=== PATIENT | male | born 1995 | race Caucasian/White ===

== ENCOUNTER 2023-05-07 20:00 | Emergency (ER) | payer SELFPAY ==
[~2023-05-07] VITALS: Ht 182.9 cm; Wt 70.5 kg
[2023-05-07 20:01] VITALS: TEMP 98.7
[2023-05-07] MEDS ORDERED: NS 1,000 ML IV ONE (20:15)
[2023-05-07] MEDS ORDERED: fentaNYL 50 MCG/ML 2 ML VIAL IV ONE ×2 (20:30→21:45)
[2023-05-07 20:35] LABS: HEMOGLOBIN 15.5 g/dl (13.5-18.0); MEAN CELL VOLUME 100 fl (80.0-100.0); MEAN CORPUSCULAR HEMOGLOBIN 34 pg (27-31); MEAN CORPUSCULAR HGB CONC 34 g/dl (33.0-37.0); MEAN PLATELET VOLUME 10.3 fl (7.4-10.4); PLATELET COUNT 318 K/mm3 (130-400); RED BLOOD COUNT 4.58 M/mm3 (4.20-5.60); REDCELL DISTRIBUTION WIDTH-CV 12.2 % (11.5-14.5)
[2023-05-07 21:06] LABS: ANISOCYTOSIS 1+; BAND 18 % (0-10); LYMPHOCYTE 9 % (20.0-51.0); METAMYELOCYTE 2 % (0-0); NEUTROPHILS 67 % (42.0-75.2); PLATELET ESTIMATE NORMAL (NORMAL)
[2023-05-07] MEDS ORDERED: levETIRAcetam 100 ML IV ONE (21:15)
[2023-05-07] MEDS ORDERED: Iohexol 300 - 100 ML VIAL IV ONE (21:59)
[2023-05-07] MEDS ORDERED: NS 60 ML IV ONE (22:00)
[2023-05-07] MEDS ORDERED: Ondansetron 4 MG/2 ML VIAL IV ONE (22:15)
[2023-05-08 00:39] VITALS: BP 129/73; PULSE 109
[2023-05-14] MEDS ORDERED: FIORICET 325 MG1 TA1 PO ×2 (17:55→18:01)
== END 2023-05-07 22:10 | disposition short-term general hospital (02) ==
LOC: COL.ER 20:00
PROVIDERS: Family Medicine
DX: S06.4X0A Epidural hemorrhage without loss of consciousness, initial encounter (principal); R00.0 Tachycardia, unspecified; R56.9 Unspecified convulsions; W17.89XA Other fall from one level to another, initial encounter; W22.09XA Striking against other stationary object, initial encounter; Y93.89 Activity, other specified
CPT/HCPCS: J1953; J2405; J3010; J7030; Q9967

== ENCOUNTER 2023-09-25 10:56 | Inpatient (IN) | payer OTHER ==
[2023-09-25] VITALS (8 sets, daily range): BP systolic 134–156; BP diastolic 78–98; PULSE 63–88; TEMP 98.2–99.1
[~2023-09-25] VITALS: Ht 182.9 cm; Wt 70.4 kg
[~2023-09-25 10:56] MED LIST: FIORICET 325 MG1 TA1 PO
[2023-09-25] MEDS ORDERED: NS 1,000 ML IV ONE (11:15)
[2023-09-25 11:21] LABS: HEMATOCRIT 38.9 % (42.0-52.0); HEMOGLOBIN 13.7 g/dl (13.5-18.0); MEAN CELL VOLUME 97 fl (80.0-100.0); MEAN CORPUSCULAR HEMOGLOBIN 34 pg (27-31); MEAN CORPUSCULAR HGB CONC 35 g/dl (33.0-37.0); MEAN PLATELET VOLUME 9.2 fl (7.4-10.4); PLATELET COUNT 297 K/mm3 (130-400); RED BLOOD COUNT 4.03 M/mm3 (4.20-5.60); REDCELL DISTRIBUTION WIDTH-CV 12.7 % (11.5-14.5)
[2023-09-25 11:38] LABS: ALBUMIN 4.3 g/dL (3.5-5.0); BILIRUBIN,TOTAL 0.9 mg/dL (0.2-1.2); CALCIUM 9.9 mg/dL (8.4-10.2); CREATININE, serum 0.8 mg/dL (0.72-1.25); POTASSIUM 4.2 mEq/L (3.5-4.5); TOTAL PROTEIN 7.6 g/dl (6.2-8.1)
[2023-09-25 11:57] LABS: BAND 6 % (0-10); LYMPHOCYTE 28 % (20.0-51.0); NEUTROPHILS 60 % (42.0-75.2); PLATELET ESTIMATE NORMAL (NORMAL); PROLACTIN 57.3 ng/mL (3.46-19.40)
[2023-09-25 13:04] LABS: URINE APPEARANCE CLEAR (CLEAR/HAZY); URINE BLOOD NEGATIVE (NEGATIVE); URINE COLOR YELLOW (YELLOW); URINE GLUCOSE NEGATIVE (NEGATIVE); URINE KETONE 2+ (NEGATIVE); URINE NITRATE NEGATIVE (NEGATIVE); URINE PROTEIN(semi-quant) 3+ (NEGATIVE)
[2023-09-25 13:52] LABS: COLLECTION METHOD CLEAN CATCH; URINE RBC 0-2 /hpf (0-2)
[2023-09-25 13:53] LABS: URINE BACTERIA NONE SEEN /hpf (NONE SEEN)
[2023-09-25] MEDS ORDERED: Ketorolac 15 MG/ML VIAL IV ONE (14:00)
[2023-09-25] MEDS ORDERED: Folic Acid 1 MG TAB PO SCH (15:26)
[2023-09-25] MEDS ORDERED: LORazepam 2 MG/ML 1 ML VIAL IV PRN (15:30)
[2023-09-25] MEDS ORDERED: Mag/Al Hydrox/Simeth Susp 30 ML CUP PO PRN (15:30)
[2023-09-25] MEDS ORDERED: levETIRAcetam 500 MG TAB PO SCH (15:42)
[2023-09-25] MEDS ORDERED: Ondansetron 4 MG/2 ML VIAL IV PRN (15:45)
[2023-09-25] MEDS ORDERED: Folic Acid 1 MG,Thiamine 200 MG in NS 1,000 ML IV SCH (16:00)
[2023-09-25] MEDS ORDERED: FIORICET 325 MG1 TA1 PO (16:44)
[2023-09-25] MEDS ORDERED: LR 1,000 ML IV SCH (17:00)
[2023-09-25] MEDS ORDERED: Multivitamin TAB PO SCH (17:00)
[2023-09-25] MEDS ORDERED: tiZANidine 4 MG TAB PO PRN (17:30)
[2023-09-25 22:41] LABS: TRICYCLIC ANTIDEPRESS URINE NEGATIVE (NEGATIVE)
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
[2023-09-26] VITALS (8 sets, daily range): BP systolic 125–139; BP diastolic 84–89; PULSE 64–75; TEMP 98.2–98.7
--- NOTE | 2023-09-26 00:37 | NUR ---
PATIENT REQUESTING VS, CIWA AND NEURO CHECKS BE RESUMED AT 0600. PATIENT WISHES TO SLEEP UNDISTURBED. CURRENT VS, TELE AND NEUROS WNL. CIWA SCORE 0.
--- NOTE | 2023-09-26 06:27 | NUR ---
PATIENT REFUSED VS, NEURO AND CIWA SCREENING SO THAT HE MAY SLEEP. 0400 SCREENINGS AND VITALS WERE OBTAINED AND ARE WNL. CIWA SCORE 0 AND TELE IS NS AT 76 BPM.
[2023-09-26 07:25] LABS: CALCIUM 10.4 mg/dL (8.4-10.2); CREATININE, serum 0.7 mg/dL (0.72-1.25); MAGNESIUM 1.7 mg/dL (1.6-2.6)
[2023-09-26] MEDS ORDERED: levETIRAcetam 500 MG TAB PO SCH (09:00)
[2023-09-26] MEDS ORDERED: Thiamine 100 MG TAB PO SCH (09:00)
--- NOTE | 2023-09-26 10:12 | NUR ---
Initial visit; Patient welcomed and introduced her to his ; Merline. Patient says he will probably be going home, that he is doing so much better and has been treated for his health issues. Hospice Administrator wished him well and will keep Adam in her praayers.
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
[2023-09-26] MEDS ORDERED: KEPPRA 500MG500 MG PO (10:35)
[2023-09-26] MEDS ORDERED: DUO-KAPS1 CAP PO (10:39)
[2023-09-26] MEDS ORDERED: THIAMINE 1100 MG/TAB PO (10:42)
[2023-09-26] MEDS ORDERED: FOLIC ACID 11 MG/TA1 PO (10:43)
--- NOTE | 2023-09-26 14:02 | NUR ---
Patient was provided with discharge information, all questions answered. IV access and telemetry were discontinued.
== END 2023-09-26 14:11 | disposition home or self-care (01) | DRG 897 ==
LOC: COL.ER 10:56 → MEDICAL 13:42
PROVIDERS: Nurse Practitioner; ADMIT Internal Medicine
DX: F10.139 Alcohol abuse with withdrawal, unspecified (principal); G40.909 Epilepsy, unspecified, not intractable, without status epilepticus; F07.81 Postconcussional syndrome; Y90.2 Blood alcohol level of 40-59 mg/100 ml; E86.0 Dehydration; R74.01 Elevation of levels of liver transaminase levels; M25.512 Pain in left shoulder; Z87.820 Personal history of traumatic brain injury; Z88.2 Allergy status to sulfonamides; Z23 Encounter for immunization
CPT/HCPCS: J1885; J3411; J7030; J7120; Q3014